=== PATIENT | male | born 1960 | race Caucasian/White ===

== ENCOUNTER 2018-09-08 16:04 | Emergency (ER) | payer BC ==
--- NOTE | 2018-09-08 16:18 | ER Report ---
History and Physical Time Seen By MD: 16:18 Hx. of Stated Complaint: PT STARTED HAVING CHEST PAIN YESTDAY MORNING WHILE DRIVING, STATES IT FELT LIKE HE PULLED A MUSCLE. TODAY THE PAIN IS COMING AND GOING. PT DID TAKE A FULL DOSE ASPIRIN TODAY AND YESTERDAY HPI/ROS CHIEF COMPLAINT: Chest pain HISTORY OF PRESENT ILLNESS: 58-year-old male patient presents to emergency room with complaint of chest pain. Patient states that he has been having chest pain since yesterday morning. Patient states he is from [facility] and came out to [place] to ride snowmobiles. Patient states that the pain started yesterday as he was driving. He states the pain seems to come and go. He states that there is nothing seems to make the pain better or worse. He states that he was exercising fairly vigorously this morning riding his no mobile through [place]. He states that he has had some neighbors who've recently. He is concerned that he may be actually having a heart attack. Patient has been taking regular strength aspirin daily since the week of . REVIEW OF SYSTEMS: Respiratory: No cough, no dyspnea. Cardiovascular: As noted above. Gastrointestinal: No vomiting, no abdominal pain. Musculoskeletal: No back pain. Allergies: Coded Allergies: No Known Drug Allergies (Unverified , 09/08/18) Home Meds No Active Prescriptions or Reported Meds Past Medical/Surgical History Patient denies any pertinent medical history. Patient denies having any surgical history. [place] patient has a family medical history of cancer, CAD. Reviewed Nurses Notes: Yes Hx Substance Use Disorder: No Hx Alcohol Use: No Constitutional Vital Sign - Last 24 Hours 09/08/18 09/08/18 09/08/18 16:10 17:30 18:00 Temp 99.0 Pulse 98 91 88 Resp 18 18 B/P (MAP) 154/108 137/98 (111) 140/105 (117) Pulse Ox 92 O2 Delivery Room Air Physical Exam General Appearance: The patient is alert, has no immediate need for airway protection and no current signs of toxicity. Respiratory: Chest is non tender, lungs are clear to auscultation. Cardiac: regular rate and rhythm Gastrointestinal: Abdomen is soft and non tender, no masses, bowel sounds normal. Musculoskeletal: Neck: Neck is supple and non tender. Extremities have full range of motion and are non tender. Skin: No rashes or lesions. DIFFERENTIAL DIAGNOSIS: After history and physical exam differential diagnosis was considered for chest pain including but not limited to myocardial ischemia, pericarditis pulmonary embolus, chest wall pain, pleural inflammation and pulmonary infectious causes. Medical Decision Making Data Points Result Diagram: 09/08/18 1653 09/08/18 1653 Laboratory Hematology Test 09/08/18 16:53 Red Blood Count 5.68 M/uL (4.00-5.60) Mean Corpuscular Volume 83.4 fL (80.0-96.0) Mean Corpuscular Hemoglobin 28.5 pg (26.0-33.0) Mean Corpuscular Hemoglobin Concent 34.1 g/dL (32.0-36.0) Red Cell Distribution Width 13.6 % (11.5-14.5) Mean Platelet Volume 8.6 fL (7.2-11.1) Neutrophils (%) (Auto) 36.7 % (39.4-72.5) Lymphocytes (%) (Auto) 57.6 % (17.6-49.6) Monocytes (%) (Auto) 3.0 % (4.1-12.4) Eosinophils (%) (Auto) 0.2 % (0.4-6.7) Basophils (%) (Auto) 2.5 % (0.3-1.4) Nucleated RBC Relative Count (auto) 0.4 /100WBC Neutrophils # (Auto) 7.5 K/uL (2.0-7.4) Lymphocytes # (Auto) 11.7 K/uL (1.3-3.6) Monocytes # (Auto) 0.6 K/uL (0.3-1.0) Eosinophils # (Auto) 0.0 K/uL (0.0-0.5) Basophils # (Auto) 0.5 K/uL (0.0-0.1) Nucleated RBC Absolute Count (auto) 0.08 K/uL Peripheral Blood Smear Yes Y/N Sodium Level 140 mmol/L (137-145) Potassium Level 3.8 mmol/L (3.5-5.0) Chloride Level 107 mmol/L (98-107) Carbon Dioxide Level 25 mmol/L (22-30) Blood Urea Nitrogen 15 mg/dl (9-21) Creatinine 1.00 mg/dl (0.66-1.25) Glomerular Filtration Rate Calc > 60.0 Random Glucose 86 mg/dl (75-110) Calcium Level 10.1 mg/dl (8.4-10.2) Total Bilirubin 1.4 mg/dl (0.2-1.3) Aspartate Amino Transf (AST/SGOT) 25 U/L (0-35) Alanine Aminotransferase (ALT/SGPT) 36 U/L (0-56) Alkaline Phosphatase 65 U/L (0-126) Troponin I < 0.012 ng/ml Total Protein 7.5 g/dl (6.3-8.2) Albumin 4.5 g/dl (3.5-5.0) Chemistry Test 09/08/18 16:53 White Blood Count 20.3 k/uL (4.5-11.0) Red Blood Count 5.68 M/uL (4.00-5.60) Hemoglobin 16.2 g/dL (14.0-18.0) Hematocrit 47.4 % (42.0-52.0) Mean Corpuscular Volume 83.4 fL (80.0-96.0) Mean Corpuscular Hemoglobin 28.5 pg (26.0-33.0) Mean Corpuscular Hemoglobin Concent 34.1 g/dL (32.0-36.0) Red Cell Distribution Width 13.6 % (11.5-14.5) Platelet Count 149 K/uL (150-450) Mean Platelet Volume 8.6 fL (7.2-11.1) Neutrophils (%) (Auto) 36.7 % (39.4-72.5) Lymphocytes (%) (Auto) 57.6 % (17.6-49.6) Monocytes (%) (Auto) 3.0 % (4.1-12.4) Eosinophils (%) (Auto) 0.2 % (0.4-6.7) Basophils (%) (Auto) 2.5 % (0.3-1.4) Nucleated RBC Relative Count (auto) 0.4 /100WBC Neutrophils # (Auto) 7.5 K/uL (2.0-7.4) Lymphocytes # (Auto) 11.7 K/uL (1.3-3.6) Monocytes # (Auto) 0.6 K/uL (0.3-1.0) Eosinophils # (Auto) 0.0 K/uL (0.0-0.5) Basophils # (Auto) 0.5 K/uL (0.0-0.1) Nucleated RBC Absolute Count (auto) 0.08 K/uL Peripheral Blood Smear Yes Y/N Glomerular Filtration Rate Calc > 60.0 Calcium Level 10.1 mg/dl (8.4-10.2) Total Bilirubin 1.4 mg/dl (0.2-1.3) Aspartate Amino Transf (AST/SGOT) 25 U/L (0-35) Alanine Aminotransferase (ALT/SGPT) 36 U/L (0-56) Alkaline Phosphatase 65 U/L (0-126) Troponin I < 0.012 ng/ml Total Protein 7.5 g/dl (6.3-8.2) Albumin 4.5 g/dl (3.5-5.0) EKG/Imaging EKG Interpretation 12 lead EKG: Rhythm: normal sinus rhythm with a sinus arrhythmia, ventricular rate of 99 bpm [place]: normal QRS: normal ST segments: normal Imaging INDICATION: Chest Pain. DATE: 09/08/2018 4:52 PM. TECHNIQUE: CHEST PA AND LAT COMPARISON: None FINDINGS: Heart size is normal. No effusion, consolidation, or pneumothorax. Mild to moderate multilevel degenerative findings in the thoracic spine. There are probably a few small calcified granulomas near the scar. IMPRESSION: No acute findings. Report Dictated By: Beth Nash MD at 09/08/2018 4:52 PM Report E-Signed By: Beth Nash MD at 09/08/2018 4:53 PM ED Course/Re-evaluation ED Course Patient was admitted to exam room, history and physical were obtained. Differential diagnoses were considered. On examination lungs are clear, heart is regular, abdomen soft nontender. Patient did not have any tenderness to palpation of the left side of the chest. A CBC, CMP, troponin, EKG, chest x-ray were done. EKG showed a normal sinus rhythm, chest x-ray was negative. Troponin was negative and CMP was unremarkable. Patient did have an elevated white count of 20,000, with 57% lymphocytes. I was concerned about possible cancer and discussed the case with Dr. Diaz, hematology at [facility] in [place]. She does not feel concerned about needing to do any emergent intervention at this time with his numbers. She felt this was likely a chronic lymphocytic leukemia. She felt the patient could go ahead and continue with normal activities and continue with riding his snowmobile on this vacation. She recommended following up with primary care provider on returning home. I discussed the findings with the patient. I discussed the conversation that Dr. Diaz and I had. I believe the chest pain is likely related to the aspirin that he is taking. I will have him hold the aspirin for right now. He can restart taking that in 3-4 days but only at the 81 mg a day. Patient is to follow-up with his primary care provider upon returning home. I also like the patient to take omeprazole daily. The patient verbalized understanding and agreement with plan. Decision to Disposition Date: Sep 08, 2018 Decision to Disposition Time: 18:11 Depart Departure Latest Vital Signs Vital Signs Date Time Temp Pulse Resp B/P (MAP) Pulse Ox O2 Delivery O2 Flow Rate FiO2 09/08/18 18:00 88 18 140/105 (117) 09/08/18 16:10 99.0 92 Room Air Impression: Primary Impression: Chest pain Additional Impression: Lymphocytosis Condition: Improved Disposition: HOME OR SELF-CARE New Scripts No Active Prescriptions or Reported Meds Patient Instructions: Chest Pain (ED) Additional Instructions: I think that this chest pain is likely due to the Aspirin causing some irritation to the esophagus. Stop taking the 325mg Aspirin. Take the Omeprazole daily for the next several days. Increase fluid intake. You may continue with normal activity levels. You have an elevated white blood cell count 20,000 with increased lymphocytes (57%, normal is 17%-49.6%) I did talk with a [employer], her thought was that this is something chronic and recommended following up with a primary care provider back home. She expects that you will be referred at some point to a [employer] there in [place]. She expected that this is Chronic Lymphocytic Leukemia Problem Qualifiers Primary Impression: Chest pain Chest pain type: other chest pain Qualified Codes: R07.89 - Other chest pain JOHN BLOOM Sep 08, 2018 16:18
--- NOTE | 2018-09-08 16:57 | RADIOLOGY IMAGING REPORT ---
FACILITY: [facility] [place] PATIENT NAME: Rodriguez Stein : 1960 MR: [id number] V: [id number] EXAM DATE: ORDERING PHYSICIAN: JOHN BLOOM TECHNOLOGIST: [place] [facility] [place] Stein : 1960 Visit/Account:[id number] Date of Sevice: 09/08/2018 INDICATION: Chest Pain. DATE: 09/08/2018 4:52 PM. TECHNIQUE: CHEST PA AND LAT COMPARISON: None FINDINGS: Heart size is normal. No effusion, consolidation, or pneumothorax. Mild to moderate multi level degenerative findings in the thoracic spine. There are probably a few small calcified granulom as near the scar. IMPRESSION: No acute findings. Report Dictated By: Beth Nash MD at 09/08/2018 4:52 PM Report E-Signed By: Beth Nash MD at 09/08/2018 4:53 PM WSN:[email or web address]
[2018-09-08 17:03] LABS: PLATELET COUNT, AUTOMATED 149 K/uL (150-450)
[2018-09-08 18:00] VITALS: BP 140/105
--- NOTE | 2018-09-08 18:04 | EKG ---
FACILITY: [facility] PATIENT NAME: SHANI ALANIZ : [id number] MR: [id number] V: [id number] EXAM DATE: ORDERING PHYSICIAN: JOHN BLOOM TECHNOLOGIST: TANIYA Test Reason : CHEST PAIN Blood Pressure : / mmHG Vent. Rate : 099 BPM Atrial Rate : 099 BPM P-R Int : 180 ms QRS Dur : 096 ms QT Int : 372 ms P-R-T Axes : 044 -15 024 degrees QTc Int : 477 ms Normal sinus rhythm with sinus arrhythmia Normal ECG No previous ECGs available Confirmed by RAFFI MARIE ([id number]) on 09/08/2018 9:17:53 PM Referred By: JACINDA Confirmed By:RAFFI MARIE
== END 2018-09-08 18:15 | disposition home or self-care (01) ==
LOC: ER 17:30
DX: R07.89 Other chest pain (principal); D72.820 Lymphocytosis (symptomatic)
CPT/HCPCS: 36415; 71046; 82040; 82247; 82310; 82374; 82435; 82565; 82947; 84075; 84132; 84155; 84295; 84450; 84460; 84484; 84520; 85025; 93005; 99284